=== PATIENT | male | born 1940 ===

== ENCOUNTER 2018-11-11 10:12 | Outpatient (CLI) | payer MEDICARE, BC ==
[~2018-11-11 10:12] MED LIST: ISOVUE-370 76%-LOCM 1 ML ONE
--- NOTE | 2018-11-11 13:58 | CT ---
CTA THORAX UTILIZING IV CONTRAST AND 3D REFORMATTED IMAGING: INDICATIONS: Essential hypertension. Concern for possible aneurysm. COMPARISON: No comparisons are available. FINDINGS: The ascending aorta measures 4.2 cm at the level of the right main pulmonary artery. The aortic arch measures 3.4 cm. The descending thoracic aorta, at the level of the right main pulmonary artery, me asures 2.9 cm. and the aorta at the level of the hiatus measures 3 cm. The main pulmonary artery umang sures 2.9 cm. The right main pulmonary artery measures 2.4 cm. The left main pulmonary artery measu res 2.8 cm. There is mild scattered centrilobular emphysema. There are sub-4 mm pulmonary nodules within the rig ht lower lobe, as well as the lingula. No consolidation, pleural effusion, or pneumothorax evident. T here are coronary artery and thoracic aorta calcifications. The visualized upper abdomen demonstrate s multiple left-sided peripelvic cysts. The adrenal glands are normal appearing. There is mild thoracic scoliosis. There is a benign appearing hemangioma within T4 and T8. IMPRESSION: 1. Mild ectasia of the ascending aorta. 2. 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 3. Mild emphysema. 4. Sub-4-mm pulmonary nodules in the right lower lobe and lingula. POS: [facility]
== END 2018-11-11 10:13 | disposition home or self-care (01) ==
LOC: BICCT 10:12
PROVIDERS: ATTEND Internal Medicine Cardiovascular Disease
DX: I10 Essential (primary) hypertension (principal); I71.2 Thoracic aortic aneurysm, without rupture; J43.2 Centrilobular emphysema; R91.8 Other nonspecific abnormal finding of lung field
CPT/HCPCS: 71275

== ENCOUNTER 2019-11-20 11:31 | Observation (INO) | payer MEDICARE, BC ==
[2019-11-20 12:16] LABS: #Basophils 0.1 thou/uL (0.0-0.2); #Lymphocytes 1.2 thou/uL (1.20-3.40); #Monocytes 0.5 thou/uL (0.11-0.59); #Neutrophils 4.1 thou/uL (1.40-6.50); %Basophils 1.4 % (0.0-1.0); %Eosinophils 0.6 % (0.0-10.0); %Lymphocytes 20.8 % (21.0-51.0); %Monocytes 7.7 % (0.0-10.0); %Neutrophils 69.5 % (42.0-75.0); Hemoglobin 14.6 g/dL (14.0-18.0); Mean Corpuscular HGB CONC 33.1 g/dL (32.0-36.0); Mean Corpuscular Hemoglobin 31.8 pg (27.0-31.0); Mean Corpuscular Volume 96.1 fL (78.0-98.0); Mean Platelet Volume 8.6 fL (7.4-10.4); Platelet Count 189 thou/uL (130-400); RBC Distribution Width 11.5 % (11.5-14.5); Red Blood Cell (RBC) Count 4.59 mill/uL (4.70-6.10); White Blood Cell (WBC) Count 5.9 thou/uL (4.8-10.8)
[2019-11-20 12:23] LABS: PTT 27.2 SEC (22.9-36.1)
--- NOTE | 2019-11-20 12:36 | RAD ---
CHEST ONE VIEW: HISTORY: Palpitations and shortness of breath. COMPARISON: 03/20/2002 FINDINGS: Heart size is normal. Lungs are clear. IMPRESSION: No acute intrathoracic disease. Atherosclerosis of the aorta. Stable from prior study. POS: [facility]
[2019-11-20 12:39] LABS: ALT (SGPT) 21 U/L (8-55); AST (SGOT) 19 U/L (5-34); Albumin 4.8 g/dL (3.4-4.8); Alkaline Phosphatase 55 U/L (40-110); Anion Gap 14 mmol/L (10-20); BUN (Urea Nitrogen) 14 mg/dL (8.4-25.7); Bilirubin, Total 0.5 mg/dL (0.2-1.2); Calc. Creatinine Clearance 0 mL/min (70-130); Calcium 9.6 mg/dL (7.8-10.44); Carbon Dioxide 26 mmol/L (23-31); Chloride 109 mmol/L (98-107); Estimated GFR-MDRD 70; Globulin 2.1 g/dL (2.4-3.5); Glucose 99 mg/dL (83-110); Potassium 4.3 mmol/L (3.5-5.1); Protein, Total 6.9 g/dL (5.8-8.1); Sodium 145 mmol/L (136-145)
[2019-11-20 13:00] LABS: CKMB 2.2 ng/mL (0-6.6)
[2019-11-20] MEDS ORDERED: Aspirin Chewable 81 MG TAB ONE (14:15)
[2019-11-20 15:40] LABS: Troponin I 0.155 ng/mL (< 0.028)
[2019-11-20] MEDS ORDERED: Senokot S 8.6-50 MG TAB PO PRN (16:28)
[2019-11-20] MEDS ORDERED: Acetaminophen 325 MG TAB PO PRN (16:28)
[2019-11-20 16:51] VITALS: BMI 27.4
[2019-11-20 18:17] LABS: Troponin I 0.172 ng/mL (< 0.028)
--- NOTE | 2019-11-20 18:41 | HP ---
PRIMARY CARE PHYSICIAN: Dr. Peñaloza in [place]. THERAPY COORDINATOR: Dr. Rollins. CHIEF COMPLAINT: Palpitations. HISTORY OF PRESENT ILLNESS: Mr. Atwood is a very pleasant 79-year-old man who presents to the emergency room today, who reports this morning he noticed after breakfast that he could feel palpitations, felt like his heart was racing, little short of breath. He reports a prior history several years ago, which he had to have an ablation. He reports that he has also had a history of pericarditis. He reports that his symptoms resolved on their own. He denies any specifically if he was treated for atrial flutter or an atrial fibrillation. Reports that he was told one of his AV nodes was not communicating. Reports that he saw Dr. Rollins in October, and was told that he had a very strong heart. Lab work in the emergency room shows a chloride of 109. He did have a troponin in the indeterminate range of 0.043, globulin at 2.1, otherwise unremarkable. EKG shows normal sinus rhythm with no ischemic changes and will be admitted to telemetry for further management. REVIEW OF SYSTEMS: The patient reports some palpitations, heart racing. He reports some shortness of breath. Denies any abdominal pain, nausea, vomiting, or diarrhea. Denies chills or fever. All systems are reviewed and are negative unless mentioned above in HPI. PAST MEDICAL HISTORY: Pertinent for a heart ablation, retinal detachment, hernia repair, pericarditis, and shingles. PAST SURGICAL HISTORY: De Quervain's release. PSYCHIATRIC HISTORY: None. SOCIAL HISTORY: He drinks socially. Denies any drug use. No smoking history. ALLERGIES: NONE. CURRENT MEDICATIONS: Per the ER system, this will have to still be reconciled; 1. Amlodipine 5 mg p.o. b.i.d. 2. Crestor 40 mg p.o. once a day. 3. Multivitamin one tablet once a day. 4. Ramipril 10 mg p.o. b.i.d. 5. Vascepa 1 g b.i.d. 6. Flomax 0.4 mg once a day. 7. Coenzyme Q 100 mg 2 tablets every morning. 8. Aspirin 81 mg p.o. b.i.d.. PHYSICAL EXAMINATION: VITAL SIGNS: Blood pressure 140/90, pulse is 70, respirations are 14, pO2 sats are 97% on room air, and temp is 97.5. CONSTITUTIONAL: The patient is alert and oriented to person, place, and time. He appears nontoxic. HEENT: Head is atraumatic and normocephalic. Eyes, pupils are equal, round, and reactive to light. ENT, mouth exam is normal. Mucous membranes are moist. NECK: Normal range of motion. Trachea is midline. RESPIRATORY: Breath sounds are clear. Chest expansion is equal. CARDIOVASCULAR: Regular heart rate and rhythm. Heart sounds are normal. ABDOMEN: Nontender. Bowel sounds are heard. BACK: Normal range of motion. No tenderness is noted. EXTREMITIES: Upper extremity, normal range of motion. Motor strength is normal. Radial pulses are normal. Lower extremity normal range of motion. Motor strength is normal. Pedal pulses are normal. No edema is noted. NEURO: The patient is alert and oriented to person, place, and time. Speech is normal. SKIN: Warm, dry, normal in color. Visualized skin. PLAN AND ASSESSMENT: 1. Palpitations with an elevated indeterminate troponin. We will trend. Order a stress test in a.m. We will also consult Cardiology. The patient's scale assembly set up worker is Dr. Rollins. Stress test is negative. Cardiology recommendations for possible monitoring will be helpful and will be greatly appreciated. 2. The patient's history of hypertension. We will continue home medications. 3. History of dyslipidemia. We will restart Crestor. 4. Deep venous thrombosis and gastrointestinal prophylaxis have been started. 5. Hospital course is dependent on clinical findings. 6. Case discussed with Dr. Linton, who agrees with plan. Job ID: [id number]
[2019-11-21 05:17] LABS: #Eosinphils 0.1 thou/uL (0.0-0.7); #Lymphocytes 1.8 thou/uL (1.20-3.40); #Monocytes 0.6 thou/uL (0.11-0.59); #Neutrophils 3.7 thou/uL (1.40-6.50); %Basophils 0.5 % (0.0-1.0); %Eosinophils 1.3 % (0.0-10.0); %Monocytes 9.7 % (0.0-10.0); %Neutrophils 59.5 % (42.0-75.0); Hemoglobin 12.8 g/dL (14.0-18.0); Mean Corpuscular HGB CONC 32.7 g/dL (32.0-36.0); Mean Corpuscular Hemoglobin 31.4 pg (27.0-31.0); Mean Corpuscular Volume 96.1 fL (78.0-98.0); Mean Platelet Volume 8.7 fL (7.4-10.4); Platelet Count 185 thou/uL (130-400); RBC Distribution Width 11.5 % (11.5-14.5); Red Blood Cell (RBC) Count 4.06 mill/uL (4.70-6.10); White Blood Cell (WBC) Count 6.3 thou/uL (4.8-10.8)
[2019-11-21 05:48] LABS: ALT (SGPT) 18 U/L (8-55); AST (SGOT) 16 U/L (5-34); Albumin 4.1 g/dL (3.4-4.8); Alkaline Phosphatase 47 U/L (40-110); Anion Gap 10 mmol/L (10-20); BUN (Urea Nitrogen) 19 mg/dL (8.4-25.7); Bilirubin, Total 0.4 mg/dL (0.2-1.2); Calc. Creatinine Clearance 73 mL/min (70-130); Carbon Dioxide 30 mmol/L (23-31); Cardiac Risk 2.8 (Less than 4.5); Chloride 107 mmol/L (98-107); Cholesterol 125 mg/dl (< 200 Desired); Estimated GFR-MDRD 59; Glucose 96 mg/dL (83-110); HDL Cholesterol 45 mg/dL (>60 Neg Risk); LDL Cholesterol, Calculated 68 mg/dL; Protein, Total 6.1 g/dL (5.8-8.1); Sodium 143 mmol/L (136-145); Triglycerides 62 mg/dL (Less than 150)
[2019-11-21] MEDS: Famotidine 20 MG TAB PO SCH (09:18)
[2019-11-21] MEDS: Enoxaparin Sodium 40 MG/0.4 ML SYRINGE SC SCH (09:19)
--- NOTE | 2019-11-21 12:09 | PDOC.HOSPP ---
- Subjective Subjective: Seen and examined on the medical unit with telemetry. Patient with episodes of palpitations prior to admission, though he denies overt chest pain. He was told he has problems with his AV node by his rate reviewer Dr. Rollins. Cardiology consultation requested. Patient pending nuclear medicine stress test to rule out reversible ischemia. Family at bedside, time was given for questions, all answered in detail. - Objective Vital Signs & Weight: Vital Signs (12 hours) Temp Pulse Resp BP BP Pulse Ox 11/21/19 07:14 98.5 F 65 16 158/87 H 95 11/21/19 04:03 98.1 F 81 16 135/72 95 Weight Weight 219 lb 8 oz I&O: 11/20/19 11/21/19 11/22/19 06:59 06:59 06:59 Intake Total 600 Output Total 0 Balance 600 Result Diagrams: 11/21/19 04:47 11/21/19 04:47 Radiology Reviewed by me: Yes Hospitalist ROS - Review of Systems All other systems reviewed; all pertinent +/- noted in HPI/Subj - Medication Medications: Active Medications Generic Name Dose Route Start Last Admin Trade Name Freq PRN Reason Stop Dose Admin Enoxaparin Sodium 40 mg 11/21/19 09:00 11/21/19 09:19 Lovenox SC Not Given 0900 BENJI Famotidine 20 mg 11/21/19 09:00 11/21/19 09:18 Pepcid PO 20 mg DAILY BENJI Administration - Exam General Appearance: NAD, awake alert Eye: anicteric sclera ENT: normocephalic atraumatic, moist mucosa Neck: supple, symmetric, no lymphadenopathy Heart: no murmur, no gallops, no rubs Respiratory: CTAB, no wheezes, no rales, no ronchi, normal chest expansion, no tachypnea Gastrointestinal: soft, non-tender, no guarding, no rigidity Extremities: no edema Skin: no lesions, no rashes Neurological: cranial nerve grossly intact, no focal deficits Musculoskeletal: no muscle wasting Psychiatric: normal affect, normal behavior, A&O x 3 Hosp A/P (1) Palpitations Code(s): R00.2 - PALPITATIONS Status: Acute (2) Elevated troponin Code(s): R79.89 - OTHER SPECIFIED ABNORMAL FINDINGS OF BLOOD CHEMISTRY Status : Acute (3) CAD (coronary artery disease) Code(s): I25.10 - ATHSCL HEART DISEASE OF [place] CORONARY ARTERY W/O ANG PCTRS Status: Acute (4) HTN (hypertension) Code(s): I10 - ESSENTIAL (PRIMARY) HYPERTENSION Status: Acute (5) HLD (hyperlipidemia) Code(s): E78.5 - HYPERLIPIDEMIA, UNSPECIFIED Status: Acute - Plan Plan: medical unit with telemetry cardiology consultation, recommendations appreciated nuclear medicine stress test to rule out reversible ischemia continuous telemetry to monitor for arrhythmia indeterminate troponins no definitive chest pain continue home medications as able blood pressure control blood sugar control G.I. prophylaxis DVT prophylaxis
[2019-11-21] MEDS ORDERED: ADENOSINE 60 MG/20 ML VIAL ONE (13:18)
--- NOTE | 2019-11-21 16:26 | NM ---
Nuclear medicine Cardiac myocardial perfusion SPECT Ejection fraction study Wall motion cine: DATE:11/21/2019 12:00 AM INDICATION: Chest pain TECHNIQUE: Number of days:2 Rest Study: Technetium 99m-sestamibi (Cardiolite) dose:9.00 mCi Stress study: Technetium 99m-sestamibi (Cardiolite) dose:27.10 mCi FINDINGS: Cardiac (myocardial perfusion) SPECT There are no reversible myocardial perfusion defects. Ejection fraction study Left ventricular EF = 62% Wall motion cine Normal wall motion and thickening IMPRESSION: No evidence of reversible myocardial ischemia.
[2019-11-21] MEDS: Icosapent Ethyl 1 GM CAPSULE PO SCH (17:11)
[2019-11-21] MEDS: Aspirin 81 mg Enteric Coated Tablet PO SCH (20:19)
[2019-11-21] MEDS ORDERED: Tamsulosin HCl 0.4 MG CAP PO SCH (21:00)
[2019-11-21] MEDS ORDERED: Ubidecarenone 50 MG CAP PO SCH (21:00)
[2019-11-21] MEDS ORDERED: Rosuvastatin 20 MG TAB PO SCH (21:00)
--- NOTE | 2019-11-22 08:05 | PDOC.HOSPP ---
- Subjective Encounter Date: 11/22/19 Encounter Time: 12:00 Subjective: No complaints this AM. Wants to go home. - Objective Vital Signs & Weight: Vital Signs (12 hours) Temp Pulse Resp BP Pulse Ox 11/22/19 03:39 97.7 F 56 L 16 144/70 H 97 11/21/19 23:23 97.9 F 56 L 16 143/76 H 95 Weight Weight 214 lb 11.2 oz I&O: 11/21/19 11/22/19 11/23/19 06:59 06:59 06:59 Intake Total 600 1070 Output Total 0 300 Balance 600 770 Result Diagrams: 11/21/19 04:47 11/21/19 04:47 Hospitalist ROS - Review of Systems Constitutional: denies: fever, chills Respiratory: denies: cough, shortness of breath Cardiovascular: denies: chest pain, palpitations Gastrointestinal: denies: nausea, vomiting, abdominal pain Neurological: denies: weakness - Medication Medications: Active Medications Generic Name Dose Route Start Last Admin Trade Name Freq PRN Reason Stop Dose Admin Aspirin 81 mg 11/21/19 21:00 11/21/19 20:19 Ecotrin PO 81 mg BID BENJI Administration Coenzyme Q10 200 mg 11/21/19 21:00 11/21/19 20:18 Coenzyme Q10 PO 200 mg HS BENJI Administration Enoxaparin Sodium 40 mg 11/21/19 09:00 11/21/19 09:19 Lovenox SC Not Given 0900 BENJI Famotidine 20 mg 11/21/19 09:00 11/21/19 09:18 Pepcid PO 20 mg DAILY BENJI Administration Miscellaneous Medication 2 gm 11/21/19 17:00 11/21/19 17:11 Vascepa PO 2 gm BID-WM BENJI Administration Rosuvastatin Calcium 40 mg 11/21/19 21:00 11/21/19 20:19 Crestor PO 40 mg HS BENJI Administration Sodium Chloride 10 ml 11/20/19 16:28 11/21/19 20:20 Flush - Normal Saline IVF 10 ml PRN PRN Administration Saline Flush Tamsulosin HCl 0.4 mg 11/21/19 21:00 11/21/19 20:19 Flomax PO 0.4 mg HS BENJI Administration - Exam General Appearance: NAD, awake alert ENT: moist mucosa Heart: RRR, no murmur, no gallops, no rubs Respiratory: CTAB, no wheezes, no rales, no ronchi Gastrointestinal: soft, non-tender, non-distended, normal bowel sounds Extremities: no cyanosis, no clubbing, no edema Psychiatric: normal affect, normal behavior, A&O x 3 Hosp A/P (1) Palpitations Code(s): R00.2 - PALPITATIONS Status: Resolved (2) Elevated troponin Code(s): R79.89 - OTHER SPECIFIED ABNORMAL FINDINGS OF BLOOD CHEMISTRY Status : Acute (3) HLD (hyperlipidemia) Code(s): E78.5 - HYPERLIPIDEMIA, UNSPECIFIED Status: Chronic (4) HTN (hypertension) Code(s): I10 - ESSENTIAL (PRIMARY) HYPERTENSION Status: Chronic - Plan Patient with negative stress test. Dr. Rollins has seen, believes he likely had a run of paroxysmal afib. He recommends starting a baby dose of metoprolol 12.5mg daily due to underlying bradycardia, will have him go by his office today to get event monitor. Cleared for d/c by Dr. Rollins.
[2019-11-22] MEDS ORDERED: Amlodipine 5 MG TAB PO SCH (09:00)
[2019-11-22] MEDS ORDERED: Ramipril 5 MG CAP PO SCH (09:00)
[2019-11-22] MEDS ORDERED: Multivit, Therapeutic 1 TAB PO SCH (09:00)
[2019-11-22] MEDS: Icosapent Ethyl 1 GM CAPSULE PO SCH (09:25)
[2019-11-22] MEDS: Aspirin 81 mg Enteric Coated Tablet PO SCH (09:26)
[2019-11-22] MEDS: Famotidine 20 MG TAB PO SCH (09:26)
[2019-11-22] MEDS: Enoxaparin Sodium 40 MG/0.4 ML SYRINGE SC SCH (09:26)
[2019-11-22 12:22] VITALS: BP 117/69; TEMP 97.5
--- NOTE | 2019-11-22 14:39 | CON ---
DATE OF CONSULTATION: HISTORY OF PRESENT ILLNESS: The patient is a 79-year-old gentleman, who presented for evaluation of palpitations. The patient has a previous history of coronary artery disease and atrial fibrillation. The patient previously underwent a cardiac catheterization in 2001. He was found to have very heavily calcified vessels. The patient had a 20% left main lesion, a 40% mid LAD lesion, 50% distal left circumflex lesion, and 20% RCA lesion. The patient also had atrial fibrillation and underwent an ablation. The patient has declined to be on anticoagulation therapy. He has done very well until the day of admission. He suddenly developed palpitations. He denied having any chest discomfort. By the time, he came to the emergency room, his palpitations have resolved. He states it lasted approximately an hour. The patient denied having any chest discomfort. PAST MEDICAL HISTORY: 1. Coronary artery disease. 2. Atrial fibrillation. 3. Hernia surgery. PAST SURGICAL HISTORY: Hand surgery. SOCIAL HISTORY: Nonsmoker. ALLERGIES: NO KNOWN DRUG ALLERGIES. MEDICATIONS: 1. Flomax 0.4 daily. 2. Crestor 40 at bedtime. 3. Vascepa two tablets b.i.d. 4. Aspirin 81 daily. 5. Ramipril 10 b.i.d. 6. Norvasc 5 daily. PHYSICAL EXAMINATION: GENERAL: A well-developed gentleman, in no acute distress. VITAL SIGNS: Blood pressure 149/82. NECK: No jugular venous distention. LUNGS: Clear to auscultation. HEART: Regular rate and rhythm. Normal S1 and S2 with a 1/6 systolic murmur. ABDOMEN: Nondistended. EXTREMITIES: Showed no edema. LABORATORY RESULTS: White blood count 6.3, hemoglobin 12.8, hematocrit 39.8, and platelets 185. Sodium was 143, potassium 4.0, chloride 107, bicarbonate 30, BUN 19, and creatinine 1.1. EKG revealed him to have normal sinus rhythm with a normal ECG. Cardiolite stress test revealed him to have normal left ventricular ejection fraction 62% with no evidence of ischemia. IMPRESSION AND PLAN: 1. Palpitations, probably secondary to paroxysmal atrial fibrillation. 2. Coronary artery disease. 3. Hypertension. 4. Dyslipidemia. 5. History of bradycardia. 6. History of a dilated aortic root. This gentleman presented with palpitations. By the time he came to the emergency room, this had resolved. The patient may have had paroxysmal atrial fibrillation. The patient has declined to be on anticoagulation therapy. I would recommend that he will have placement of a 30-day monitor. I will start the patient on a low dose of beta nisha since he has underlying bradycardia. I will follow this patient with you through his hospitalization. Job ID: [id number] MTDD
--- NOTE | 2019-11-22 14:58 | DIS ---
DATE OF ADMISSION: 11/20/2019 DATE OF DISCHARGE: 11/22/2019 PRIMARY CARE PHYSICIAN: Paul Peñaloza MD PRIMARY CHOREOGRAPHY DIRECTOR: Jesus Rollins MD REASON FOR ADMISSION: Palpitations. DIAGNOSES AT DISCHARGE: 1. Palpitations, resolved. 2. Indeterminate troponins. 3. Hyperlipidemia. 4. Hypertension. PROCEDURES: Nuclear medicine stress test showing no evidence for reversible myocardial ischemia. CONSULTATIONS: Cardiology, Dr. Rollins. SUMMARY OF HOSPITAL COURSE: This is a 79-year-old white male, who presented to the emergency room with palpitations like his heart was racing and a little short of breath. He reported a prior history several years ago, for which he had an ablation. The patient presented to the emergency room. He had normal sinus rhythm at that time without any ischemic changes on EKG. His troponin was indeterminate. The patient was watched on telemetry monitoring while he is in the hospital. He had no recurrent episodes of palpitations, was asymptomatic during hospitalization. He had a negative stress test. Dr. Rollins did evaluate the patient. In turn, the patient likely had a paroxysmal run of atrial fibrillation and recommended starting him on a very low dose of metoprolol and he is going to have him fitted with an event monitor in the clinic after release today and he is cleared for discharge. DISCHARGE MANAGEMENT: Discharged home. FOLLOWUP: Follow up with Dr. Rollins in his office today to get the event monitor and with Dr. Peñaloza in 7 days. ACTIVITY: As tolerated. DIET: Healthy heart with low-sodium diet. MEDICATIONS: 1. Metoprolol succinate 25 mg one-half tablet p.o. daily 30 tablets dispensed. 2. Amlodipine 5 mg daily. 3. Aspirin 81 mg twice a day. 4. Vascepa 2 g p.o. twice a day. 5. Multivitamin daily. 6. Altace 10 mg twice a day. 7. Crestor 40 mg at night. 8. Flomax 0.4 mg at night. 9. Coenzyme Q10 of 200 mg at night. Job ID: [id number]
== END 2019-11-22 12:55 | disposition home or self-care (01) ==
LOC: ERS 11:31 → 2SW 14:59
PROVIDERS: ADMIT Internal Medicine; ATTEND Internal Medicine
DX: R00.2 Palpitations (principal); R79.89 Other specified abnormal findings of blood chemistry; I25.10 Atherosclerotic heart disease of native coronary artery without angina pectoris; I10 Essential (primary) hypertension; E78.5 Hyperlipidemia, unspecified; Z79.82 Long term (current) use of aspirin; Z79.899 Other long term (current) drug therapy
CPT/HCPCS: 71045; 78452; 80053; 80061; 82553; 83880; 84484 ×2; 85025; 85610; 85730; 93005; 93017; 93306; 96372; 97139; 99285; A9500; G0378 ×4; 36415; 84443; J0153; J1650